=== PATIENT | female | born 1980 | race Hispanic/Latino ===

== ENCOUNTER 2020-07-06 22:35 | Emergency (ER) | payer OTHER, SELFPAY ==
[2020-07-06] MEDS ORDERED: Fluorescein Opthalmic Strip ONE (23:24)
[2020-07-06] MEDS ORDERED: Tetracaine 0.5% PF 4 ML BOT ONE (23:24)
== END 2020-07-07 00:06 | disposition home or self-care (01) ==
LOC: CSHERS 22:35
DX: S05.02XA Injury of conjunctiva and corneal abrasion without foreign body, left eye, initial encounter (principal); H40.052 Ocular hypertension, left eye; F17.210 Nicotine dependence, cigarettes, uncomplicated; X58.XXXA Exposure to other specified factors, initial encounter
CPT/HCPCS: 99283

== ENCOUNTER 2021-01-30 12:52 | Outpatient (CLI) | payer OTHER | END 2021-01-30 12:53 | disposition home or self-care (01) | LOC: CSHULT 12:52 | PROVIDERS: ATTEND Nurse Practitioner Women's Health | DX: Z34.82 Encounter for supervision of other normal pregnancy, second trimester (principal); Z3A.23 23 weeks gestation of pregnancy | CPT/HCPCS: 76805 ==

== ENCOUNTER 2021-01-31 11:48 | Outpatient (CLI) | payer OTHER | END 2021-01-31 11:49 | disposition home or self-care (01) | LOC: CSHULT 11:48 | PROVIDERS: ATTEND Family Medicine | DX: O09.92 Supervision of high risk pregnancy, unspecified, second trimester (principal); Z3A.24 24 weeks gestation of pregnancy | CPT/HCPCS: 76815 ==

== ENCOUNTER 2021-04-12 21:25 | Day surgery (SDC) | payer OTHER ==
[2021-04-12] MEDS ORDERED: hydrALAZINE 20 MG/ML VIAL SLOW IVP PRN (21:59)
== END 2021-04-12 22:20 | disposition home or self-care (01) ==
LOC: CSHLD/OP 21:25
PROVIDERS: ATTEND Family Medicine
DX: O36.8130 Decreased fetal movements, third trimester, not applicable or unspecified (principal); O98.513 Other viral diseases complicating pregnancy, third trimester; U07.1 COVID-19; O09.523 Supervision of elderly multigravida, third trimester; O24.419 Gestational diabetes mellitus in pregnancy, unspecified control; Z3A.34 34 weeks gestation of pregnancy; Z88.5 Allergy status to narcotic agent
CPT/HCPCS: 99282

== ENCOUNTER 2021-04-29 11:22 | Day surgery (SDC) | payer OTHER ==
[2021-04-29 14:16] LABS: ALT (SGPT) 13 U/L (8-55); AST (SGOT) 19 U/L (5-34); Alkaline Phosphatase 134 U/L (40-110); Anion Gap 15 mmol/L (10-20); BUN (Urea Nitrogen) 10 mg/dL (7.0-18.7); Bilirubin, Total 0.4 mg/dL (0.2-1.2); Calc. Creatinine Clearance 0 mL/min (70-130); Calcium 8.6 mg/dL (7.8-10.44); Carbon Dioxide 20 mmol/L (22-29); Chloride 104 mmol/L (98-107); Globulin 2.6 g/dL (2.4-3.5); Glucose 141 mg/dL (70-105); Potassium 3.7 mmol/L (3.5-5.1); Protein, Total 5.6 g/dL (6.0-8.3); Sodium 135 mmol/L (136-145)
[2021-04-29 16:36] LABS: Hemoglobin A1c 7.4 % (4.0-6.0)
== END 2021-04-29 17:52 | disposition home or self-care (01) ==
LOC: CSHLD/OP 11:22
PROVIDERS: ATTEND Family Medicine
DX: O24.419 Gestational diabetes mellitus in pregnancy, unspecified control (principal); O09.523 Supervision of elderly multigravida, third trimester; O48.0 Post-term pregnancy; O09.33 Supervision of pregnancy with insufficient antenatal care, third trimester; Z3A.41 41 weeks gestation of pregnancy; Z91.19 Patient's noncompliance with other medical treatment and regimen; Z88.5 Allergy status to narcotic agent
CPT/HCPCS: 36415; 76815; 76819; 80053; 83036

== ENCOUNTER 2021-05-02 09:25 | Day surgery (SDC) | payer OTHER ==
[2021-05-02 09:49] VITALS: BMI 39.9
== END 2021-05-02 12:25 | disposition home health service (06) ==
LOC: CSHLD/OP 09:25
PROVIDERS: ATTEND Family Medicine
DX: O24.419 Gestational diabetes mellitus in pregnancy, unspecified control (principal); O09.523 Supervision of elderly multigravida, third trimester; Z3A.37 37 weeks gestation of pregnancy; Z88.5 Allergy status to narcotic agent
CPT/HCPCS: 76819

== ENCOUNTER 2021-05-05 12:21 | Outpatient (CLI) | payer OTHER ==
[2021-05-06 08:27] LABS: SARS-CoV-2 PCR by NAA Not Detected (NotDetected)
== END 2021-05-05 12:22 | disposition home or self-care (01) ==
LOC: CSHLAB 12:21
PROVIDERS: ATTEND Family Medicine
DX: Z20.822 Contact with and (suspected) exposure to COVID-19 (principal)
CPT/HCPCS: U0003; U0005

== ENCOUNTER 2021-05-06 13:48 | Inpatient (IN) | payer OTHER ==
[2021-05-06] MEDS ORDERED: Ondansetron PF 4 MG/2 ML Vial IVP PRN ×3 (14:19→19:32)
[2021-05-06] MEDS ORDERED: hydrALAZINE 20 MG/ML VIAL SLOW IVP PRN ×2 (14:19→19:32)
[2021-05-06] MEDS ORDERED: Promethazine HCl 25 MG/ML VIAL IM PRN ×3 (14:19→19:32)
[2021-05-06] MEDS ORDERED: Famotidine/PF 20 mg/2ml Vial SLOW IVP PRN (14:19)
[2021-05-06] MEDS ORDERED: Bicitra 30 ML UDCUP PO PRN (14:19)
[2021-05-06] MEDS ORDERED: Lactated Ringer's 1,000 ML IV SCH (14:30)
[2021-05-06] MEDS ORDERED: Azithromycin 500 MG in Sodium Chloride 0.9% 250 ML 250 ML IVPB SCH (14:30)
[2021-05-06] MEDS ORDERED: ceFAZolin 2 GM/Dextrose 50 ML 2 GM in Premix Bag 1 BAG IVPB SCH (14:30)
[2021-05-06 14:37] VITALS: BMI 39.1
[2021-05-06 15:54] LABS: Hemoglobin 13.2 g/dL (12.0-15.5); Mean Corpuscular HGB CONC 33.2 g/dL (32.0-36.0); Mean Corpuscular Hemoglobin 29.2 pg (27.0-33.0); Mean Corpuscular Volume 88.1 fl (81.6-98.3); Mean Platelet Volume 11.1 fl (7.4-10.4); Platelet Count 218 10x3/uL (150-450); RBC Distribution Width 13.4 % (11.5-14.5); Red Blood Cell (RBC) Count 4.52 10x6/uL (3.90-5.03); White Blood Cell (WBC) Count 6.8 10x3/uL (3.5-10.5)
[2021-05-06] MEDS ORDERED: Oxytocin 10 UNITS/ML VIAL ONE (15:59)
[2021-05-06] MEDS ORDERED: ePHEDrine Sulfate 50 MG/10 ML VIAL ONE (15:59)
[2021-05-06] MEDS ORDERED: Phenylephrine 40 MG/NS 250 ML 250 ML ONE (15:59)
[2021-05-06] MEDS ORDERED: Morphine PF 10 MG/10 ML VIAL ONE (15:59)
[2021-05-06 16:14] LABS: Hep B Surf Ag Non-Reactive S/CO (NonReactive); Syphilis Antibody Nonreactive (Nonreactive); Syphilis Antibody Index 0.02 S/CO (<1.00 Non-Reactive)
[2021-05-06 16:24] LABS: HBSAg Index 0.19 S/CO (0-0.99)
[2021-05-06] MEDS ORDERED: Dexamethasone 4 mg/ml Vial ONE (16:58)
[2021-05-06] MEDS ORDERED: Ondansetron PF 4 MG/2 ML Vial ONE (16:58)
[2021-05-06] MEDS ORDERED: Midazolam HCl 2 mg/2 ml Vial ONE (17:04)
[2021-05-06 17:09] LABS: pH (Cord, venous) 7.319 (7.250-7.350)
[2021-05-06] MEDS ORDERED: diphenhydrAMINE 50 MG/ML VIAL ONE (17:23)
[2021-05-06 17:28] LABS: Amphetamine Not Detected (NotDetected); Barbiturates Screen Not Detected (NotDetected); Benzodiazepine Screen Not Detected (NotDetected); Cocaine Metabolite Screen Not Detected (NotDetected); Methadone Not Detected (NotDetected); Methamphetamine Not Detected (NotDetected); Opiate Screen Not Detected (NotDetected); Oxycodone Screen Not Detected (NotDetected); Phencyclidine (PCP) Not Detected (NotDetected); THC/Cannabinoid Screen Not Detected (NotDetected); Tricyclic Screen Not Detected (NotDetected)
[2021-05-06] MEDS ORDERED: Hydrocerin (Eucerin) Cream 120 gm Jar TOP PRN (17:42)
[2021-05-06] MEDS ORDERED: Naloxone HCl 0.4 mg/ml Vial IV PRN (17:42)
[2021-05-06] MEDS ORDERED: diphenhydrAMINE 50 MG/ML VIAL IVP PRN (17:42)
[2021-05-06] MEDS ORDERED: L&D-Morphine 4 MG/ML VIAL SLOW IVP PRN (17:42)
[2021-05-06] MEDS ORDERED: Promethazine HCl 25 MG SUPP PR PRN (17:42)
[2021-05-06] MEDS ORDERED: Naloxone HCl 0.4 mg/ml Vial IVP PRN ×2 (17:42)
[2021-05-06] MEDS ORDERED: Fentanyl 100 MCG/2 ML VIAL SLOW IVP PRN (17:42)
[2021-05-06] MEDS ORDERED: Ketorolac Tromethamine 30 MG/ML VIAL IVP PRN (17:42)
[2021-05-06] MEDS ORDERED: Communication Order-Pharmacy FS SCH (17:45)
[2021-05-06] MEDS ORDERED: NS w/ Oxytocin 30 units 500 ML IV SCH (19:32)
[2021-05-06] MEDS ORDERED: Lanolin Ointment 7 GM TUBE TOP PRN (19:32)
[2021-05-06] MEDS ORDERED: Simethicone Chewable 80 MG TAB PO PRN (19:32)
[2021-05-06] MEDS ORDERED: Boostrix 0.5 ML (Tdap) VIAL IM ONE (19:32)
[2021-05-06] MEDS: cloNIDine 0.1 MG TAB PO PRN (20:21)
[2021-05-06] MEDS ORDERED: Losartan Potassium 50 MG TAB PO SCH (21:00)
[2021-05-06] MEDS: Ferrous Sulfate 325 MG TAB PO SCH (22:50)
[2021-05-06] MEDS: Docusate 100 MG CAP PO SCH (22:50)
[2021-05-07] MEDS ORDERED: Ketorolac Tromethamine 30 MG/ML VIAL IVP SCH ×3 (00:30→06:00)
[2021-05-07] MEDS: diphenhydrAMINE 25 MG CAP PO PRN ×2 (00:36→06:39)
[2021-05-07 05:05] LABS: Hemoglobin 10.3 g/dL (12.0-15.5); Mean Corpuscular HGB CONC 32.8 g/dL (32.0-36.0); Mean Corpuscular Hemoglobin 29.4 pg (27.0-33.0); Mean Corpuscular Volume 89.7 fl (81.6-98.3); Platelet Count 166 10x3/uL (150-450); RBC Distribution Width 13.3 % (11.5-14.5); White Blood Cell (WBC) Count 10.5 10x3/uL (3.5-10.5)
[2021-05-07] MEDS: Ferrous Sulfate 325 MG TAB PO SCH (07:34)
[2021-05-07] MEDS: Losartan Potassium 50 MG TAB PO SCH (08:15)
[2021-05-07] MEDS: Prenatal Vitamin 1 TAB PO SCH (08:15)
[2021-05-07] MEDS: Docusate 100 MG CAP PO SCH (08:15)
[2021-05-07] MEDS: Ibuprofen 800 MG TAB PO SCH ×2 (13:34→22:18)
[2021-05-07] MEDS: HYDROcodone/Acetaminophen 5/325 mg Tablet PO PRN (19:51)
[2021-05-08] MEDS: HYDROcodone/Acetaminophen 5/325 mg Tablet PO PRN ×4 (05:05→22:27)
[2021-05-08] MEDS: Ibuprofen 800 MG TAB PO SCH ×3 (06:56→22:26)
[2021-05-08] MEDS: Ferrous Sulfate 325 MG TAB PO SCH ×3 (07:39→19:34)
[2021-05-08] MEDS: Docusate 100 MG CAP PO SCH ×3 (07:43→22:27)
[2021-05-08] MEDS: Losartan Potassium 50 MG TAB PO SCH (10:04)
[2021-05-08] MEDS: Prenatal Vitamin 1 TAB PO SCH (10:04)
[2021-05-08] MEDS: cloNIDine 0.1 MG TAB PO PRN (18:08)
[2021-05-09] MEDS: Ibuprofen 800 MG TAB PO SCH ×3 (05:44→21:16)
[2021-05-09] MEDS: HYDROcodone/Acetaminophen 5/325 mg Tablet PO PRN ×4 (05:49→20:05)
[2021-05-09] MEDS: Ferrous Sulfate 325 MG TAB PO SCH ×4 (07:24→21:18)
[2021-05-09] MEDS: metFORMIN 500 MG TAB PO SCH ×2 (08:11→16:56)
[2021-05-09] MEDS: Docusate 100 MG CAP PO SCH ×2 (08:11→21:16)
[2021-05-09] MEDS: Hydrochlorothiazide 25 MG TAB PO SCH (08:12)
[2021-05-09] MEDS: Prenatal Vitamin 1 TAB PO SCH (08:15)
[2021-05-09] MEDS: Losartan Potassium 50 MG TAB PO SCH (08:16)
[2021-05-09] MEDS: cloNIDine 0.1 MG TAB PO PRN (11:48)
[2021-05-10] MEDS: HYDROcodone/Acetaminophen 5/325 mg Tablet PO PRN ×2 (00:42→05:58)
[2021-05-10] MEDS: Ibuprofen 800 MG TAB PO SCH (05:57)
[2021-05-10] MEDS: Hydrochlorothiazide 25 MG TAB PO SCH (08:28)
[2021-05-10] MEDS: Losartan Potassium 50 MG TAB PO SCH (08:28)
[2021-05-10] MEDS: metFORMIN 500 MG TAB PO SCH (08:29)
[2021-05-10] MEDS: Ferrous Sulfate 325 MG TAB PO SCH (08:30)
[2021-05-10] MEDS: Docusate 100 MG CAP PO SCH (08:30)
[2021-05-10] MEDS: Prenatal Vitamin 1 TAB PO SCH (08:31)
[2021-05-10 09:17] VITALS: TEMP 98.4
[2021-05-10 12:13] VITALS: BP 136/83
== END 2021-05-09 13:50 | disposition home or self-care (01) | DRG 788 ==
LOC: CSHLD 13:48 → CSHPED 21:01
PROVIDERS: ADMIT Family Medicine; ATTEND Family Medicine
PROC: 10D00Z1 Extraction of Products of Conception, Low, Open Approach (ICD-10-PCS; principal; 2021-05-06)
DX: O34.211 Maternal care for low transverse scar from previous cesarean delivery (principal); Z3A.37 37 weeks gestation of pregnancy; Z37.0 Single live birth; O24.429 Gestational diabetes mellitus in childbirth, unspecified control; O40.3XX0 Polyhydramnios, third trimester, not applicable or unspecified; O99.214 Obesity complicating childbirth; O13.4 Gestational [pregnancy-induced] hypertension without significant proteinuria, complicating childbirth; O99.824 Streptococcus B carrier state complicating childbirth; O36.60X0 Maternal care for excessive fetal growth, unspecified trimester, not applicable or unspecified
CPT/HCPCS: 36415; 36416; 51702; 80306; 82805; 85027; 86780; 86850; 86900; 86901; 87340; 88307; J1100; J1200; J1885; J2250; J2274; J2405; J2590

== ENCOUNTER 2021-08-10 16:54 | Emergency (ER) | payer OTHER ==
[2021-08-10 18:54] LABS: #Basophils 0.1 10x3/uL (0.0-0.2); #Eosinphils 0.4 10x3/uL (0.0-0.5); #Monocytes 0.4 10x3/uL (0.0-1.1); #Neutrophils 3.6 10x3/uL (1.5-8.4); %Basophils 0.9 % (0.0-2.0); %Eosinophils 5.5 % (0.0-6.0); %Lymphocytes 32.4 % (18.0-47.0); %Monocytes 5.8 % (0.0-10.0); %Neutrophils 54.8 % (40.0-75.0); Hemoglobin 12.4 g/dL (12.0-15.5); Mean Corpuscular HGB CONC 33.9 g/dL (32.0-36.0); Mean Corpuscular Hemoglobin 28.9 pg (27.0-33.0); Mean Corpuscular Volume 85.3 fl (81.6-98.3); Mean Platelet Volume 9.4 fl (7.4-10.4); Platelet Count 334 10x3/uL (150-450); RBC Distribution Width 12.3 % (11.5-14.5); Red Blood Cell (RBC) Count 4.29 10x6/uL (3.90-5.03); White Blood Cell (WBC) Count 6.6 10x3/uL (3.5-10.5)
[2021-08-10 18:57] LABS: BHCG - Serum Negative (NEGATIVE); Pregs Control Background? CLEAR/WHITE (CLR/WHITE); Pregs Control Bar Appear? YES (CONTROL BAR)
[2021-08-10 19:07] LABS: ALT (SGPT) 50 U/L (8-55); AST (SGOT) 37 U/L (5-34); Albumin 4.1 g/dL (3.5-5.0); Alkaline Phosphatase 64 U/L (40-110); Anion Gap 12 mmol/L (10-20); BUN (Urea Nitrogen) 12 mg/dL (7.0-18.7); Bilirubin, Total 0.3 mg/dL (0.2-1.2); Calc. Creatinine Clearance 0 mL/min (70-130); Calcium 9.2 mg/dL (7.8-10.44); Carbon Dioxide 28 mmol/L (22-29); Chloride 101 mmol/L (98-107); Globulin 2.7 g/dL (2.4-3.5); Glucose 198 mg/dL (70-105); Protein, Total 6.8 g/dL (6.0-8.3); Sodium 137 mmol/L (136-145)
== END 2021-08-10 19:25 | disposition home or self-care (01) ==
LOC: CSHERS 16:54
DX: N93.9 Abnormal uterine and vaginal bleeding, unspecified (principal); I10 Essential (primary) hypertension; F17.210 Nicotine dependence, cigarettes, uncomplicated
CPT/HCPCS: 76856; 80053; 84703; 85025; 86850; 86870; 86900; 86901; 86905; 93976